=== PATIENT | female | born 1995 | race African-American/Black ===

== ENCOUNTER 2022-10-12 14:55 | Emergency (ER) | payer MEDICAID ==
[~2022-10-12] VITALS: Ht 162.6 cm; Wt 100.0 kg
[2022-10-12] MEDS ORDERED: ACETAMINOPHEN 325MG TABLET PO ONE (16:30)
[2022-10-12] MEDS ORDERED: IBUPROFEN 400MG TABLET PO ONE (16:30)
[2022-10-12 16:53] VITALS: BP 137/111
[2022-10-12] MEDS ORDERED: TOPUD MT (18:09)
[2022-10-12] MEDS ORDERED: AZIT250T12 MT (18:09)
== END 2022-10-12 18:30 | disposition home or self-care (01) ==
LOC: ER 14:55
DX: U07.1 COVID-19 (principal)
CPT/HCPCS: 71045; 87426; 87804; 99284; C9803

== ENCOUNTER 2022-11-18 21:54 | Emergency (ER) | payer BC, MEDICAID, OTHER ==
[~2022-11-18] VITALS: Ht 162.6 cm; Wt 100.0 kg
[~2022-11-18 21:54] MED LIST: AZIT250T12 MT; TOPUD MT
[2022-11-18] MEDS ORDERED: IBUPROFEN 600MG TABLET PO STA (23:37)
[2022-11-19 00:07] LABS: BASOPHILS % 0.3 % (0.0-2.0); EOSINOPHILS % 2.3 % (0.0-5.0); HEMATOCRIT. 41.6 % (36.0-48.0); LYMPHOCYTES % 40.2 % (20.0-50.0); MEAN CORPUSCULAR HEMOGLOBIN 29.9 pg (28.0-32.0); MEAN PLATELET VOLUME 9.3 fl (7.4-10.4); MONOCYTES % 9.5 % (2.0-8.0); NEUTROPHILS % 47.7 % (40.0-76.0); PLATELET 246 x1000/uL (130-400); RED BLOOD CELL COUNT 4.67 mill/uL (4.2-5.4); RED CELL DISTRIBUTION WIDTH 13.7 % (11.6-14.6)
[2022-11-19 00:08] LABS: CHLORIDE 105 mEq/L (98-107)
[2022-11-19 00:38] VITALS: BP 120/84
[2022-11-19] MEDS ORDERED: IBUP-2029 MT (02:16)
[2022-11-19] MEDS ORDERED: BACL-141 MT (02:16)
== END 2022-11-19 02:33 | disposition home or self-care (01) ==
LOC: ER 21:54
DX: M54.9 Dorsalgia, unspecified (principal); Z98.890 Other specified postprocedural states
CPT/HCPCS: 36415; 72070; 80053; 81025; 85025; 99284